=== PATIENT | male | born 1960 | race Caucasian/White ===

== ENCOUNTER 2017-08-30 16:55 | Emergency (ER) | payer OTHER ==
[~2017-08-30] VITALS: Ht 172.7 cm; Wt 68.0 kg
[~2017-08-30 16:55] MED LIST: CIPROFLOXACIN500 MG PO; CLARITIN10 MG PO; FLOMAX0.4 MG PO; FLONASE ALLERG9.9 ML NAS; HYDROCODONE BIT1 T11 PO; KEFLEX500 MG PO; MEDROL DOSEPAK4 MG PO; MOTRIN800 MG PO; PERCOCET 325 MG1 TA2 PO; PREDNISONE10 MG PO; ROBITUSSIN DM 105 ML PO; ZOFRAN ODT4 MG SL; Zofran4 MG PO
== END 2017-08-30 18:19 | disposition home or self-care (01) ==
LOC: ED 16:55
DX: H61.22 Impacted cerumen, left ear (principal); Z98.890 Other specified postprocedural states; Z79.899 Other long term (current) drug therapy

== ENCOUNTER 2018-12-21 00:08 | Emergency (ER) | payer OTHER ==
[~2018-12-21] VITALS: Ht 172.7 cm; Wt 63.5 kg
[~2018-12-21 00:08] MED LIST changes: +ALLEGRA-D 24 H1 EACH PO; +ZITHROMAX250 MG PO
[2018-12-21] MEDS ORDERED: MEDROL DOSEPAK4 MG PO (02:26)
[2018-12-21] MEDS ORDERED: CYCLOBENZAPRINE5 M3 PO (02:26)
== END 2018-12-21 02:41 | disposition home or self-care (01) ==
LOC: ED 00:08
DX: M54.16 Radiculopathy, lumbar region (principal); Z79.2 Long term (current) use of antibiotics; Z79.899 Other long term (current) drug therapy

== ENCOUNTER → 2019-01-21 | Outpatient (CLI) | payer OTHER ==
[~2019-01-21] MED LIST changes: +CYCLOBENZAPRINE5 M3 PO
== END | disposition home or self-care (01) ==
LOC: MRI 10:00 → RAD 10:00
DX: M51.36 Other intervertebral disc degeneration, lumbar region (principal); M48.061 Spinal stenosis, lumbar region without neurogenic claudication; M41.85 Other forms of scoliosis, thoracolumbar region

== ENCOUNTER 2019-04-06 22:35 | Emergency (ER) | payer OTHER ==
[~2019-04-06] VITALS: Ht 172.7 cm; Wt 68.0 kg
[2019-04-06 23:01] LABS: BASO % 0.3 % (0.0-1.0); EOS # 0.9 10*3/uL (0.0-0.4); EOS % 6.1 % (1.0-4.0); HEMATOCRIT 46.9 % (42.0-52.0); HEMOGLOBIN 15.6 g/dl (14.0-18.0); LYMPH # 2.7 10*3/uL (1.3-4.4); LYMPH % 18.3 % (27.0-41.0); MEAN CELL VOLUME 95.7 fl (80.0-94.0); MEAN CORPUSCULAR HGB 31.8 pg (27.0-31.0); MEAN CORPUSCULAR HGB CONC 33.3 g/dl (33.0-37.0); MEAN PLATELET VOLUME 9.9 fl (9.6-12.3); MONO # 0.8 10*3/uL (0.1-1.0); MONO % 5.4 % (3.0-9.0); NEUT # 10.2 10*3/uL (2.3-7.9); NEUT % 69.6 % (47.0-73.0); PLATELET COUNT AUTOMATED 184 10*3/uL (130-400); RED CELL DISTRI WIDTH 12.6 % (0-14.5); WHITE BLOOD COUNT 14.7 10*3/uL (4.8-10.8)
[2019-04-06 23:19] LABS: ALKALINE PHOSPHATASE 86 U/L (45-117); BUN 18 mg/dl (7-24); CHLORIDE 106 mmol/L (98-107); CREATININE 1.08 mg/dL (0.70-1.30); LIPASE 241 U/L (73-393); SGOT/AST 13 IU/L (3-35); SGPT/ALT 20 U/L (12-78); SODIUM 141 mmol/L (136-145); TOTAL PROTEIN 7.2 gm/dL (6.4-8.2)
[2019-04-06 23:20] LABS: TROPONIN I < 0.015 ng/ml (<0.045)
[2019-04-07 01:35] LABS: BILIRUBIN NEGATIVE (NEGATIVE); BLOOD 3+ (NEGATIVE); CLARITY CLEAR (CLEAR); COLOR YELLOW (YELLOW); GLUCOSE NEGATIVE (NEGATIVE); KETONE NEGATIVE (NEGATIVE); LEUKO ESTERASE NEGATIVE (NEGATIVE); NITRITE NEGATIVE (NEGATIVE); UROBILINOGEN 0.2 E.U./dl (0.2-1.0)
[2019-04-07 01:43] LABS: RBC 21-30 rbc/hpf (0-2); WBC 0-2 wbc/hpf (0-5)
[2019-04-07] MEDS ORDERED: Percocet 325 MG1 TAB PO (02:10)
[2019-04-07] MEDS ORDERED: FLOMAX0.4 MG PO (02:10)
== END 2019-04-07 02:31 | disposition home or self-care (01) ==
LOC: ED 22:35
PROVIDERS: Emergency Medicine Emergency Medical Services
DX: N13.2 Hydronephrosis with renal and ureteral calculous obstruction (principal); R19.7 Diarrhea, unspecified; R11.10 Vomiting, unspecified; Z79.2 Long term (current) use of antibiotics; Z79.899 Other long term (current) drug therapy; Z87.442 Personal history of urinary calculi

== ENCOUNTER 2020-10-27 16:07 | Emergency (ER) | payer OTHER ==
[~2020-10-27] VITALS: Ht 172.7 cm; Wt 61.2 kg
[~2020-10-27 16:07] MED LIST changes: +Percocet 325 MG1 TAB PO
[2020-10-27 18:13] LABS: HEMATOCRIT 44.6 % (42.0-52.0); MEAN CELL VOLUME 92.1 fl (80.0-94.0); MEAN CORPUSCULAR HGB 31.2 pg (27.0-31.0); MEAN CORPUSCULAR HGB CONC 33.9 g/dl (33.0-37.0); PLATELET COUNT AUTOMATED 209 10*3/uL (130-400); RED BLOOD COUNT 4.84 10*6/uL (4.50-5.90); RED CELL DISTRI WIDTH 12.9 % (0-14.5); WHITE BLOOD COUNT 8.2 10*3/uL (4.8-10.8)
[2020-10-27 18:27] LABS: ALBUMIN 3.5 gm/dl (3.1-4.5); ALKALINE PHOSPHATASE 235 U/L (45-117); BUN 12 mg/dl (7-24); CHLORIDE 104 mmol/L (98-107); CREATININE 0.92 mg/dL (0.70-1.30); POTASSIUM 4.8 mmol/L (3.5-5.1); SGOT/AST 20 IU/L (3-35); SGPT/ALT 76 U/L (12-78); SODIUM 136 mmol/L (136-145); TOTAL PROTEIN 7.3 gm/dL (6.4-8.2)
[2020-10-27 19:05] LABS: BASOPHILS 2 % (0-1); PLATELET SUFFICIENCY NORMAL (NORMAL); TOTAL CELLS COUNTED 100 #CELLS
== END 2020-10-27 21:08 | disposition home or self-care (01) ==
LOC: ED 16:07
PROVIDERS: Emergency Medicine
DX: R13.10 Dysphagia, unspecified (principal); R63.4 Abnormal weight loss; R22.1 Localized swelling, mass and lump, neck; Z79.2 Long term (current) use of antibiotics; Z79.899 Other long term (current) drug therapy; Z87.442 Personal history of urinary calculi; Z98.890 Other specified postprocedural states

== ENCOUNTER 2024-09-21 00:48 | Emergency (ER) | payer OTHER ==
[~2024-09-21] VITALS: Ht 172.7 cm; Wt 61.2 kg
[2024-09-21] MEDS ORDERED: Dexamethasone Sodium Phospha 20 MG/5 ML VIAL IM ONE (01:25)
[2024-09-21] MEDS ORDERED: PREDNISONE20 M1 PO (01:30)
[2024-09-21] MEDS ORDERED: Ondansetron4 MG PO (01:30)
[2024-09-21] MEDS ORDERED: METHOCARBAMOL750 M1 PO (01:30)
[2024-09-21] MEDS ORDERED: PERCOCET 5-3251 EACH PO (01:30)
[2024-09-21] MEDS ORDERED: Ondansetron Hydrochloride 4 MG TAB PO ONE (01:30)
[2024-09-21] MEDS ORDERED: MORPHINE Sulfate 2 MG/ML SYR IM ONE (01:30)
[2024-09-21] MEDS ORDERED: METHOCARBAMOL 750 MG TAB PO ONE (01:30)
== END 2024-09-21 01:50 | disposition home or self-care (01) ==
LOC: ED 00:48
DX: M54.16 Radiculopathy, lumbar region (principal); M54.41 Lumbago with sciatica, right side; Z98.890 Other specified postprocedural states